=== PATIENT | male | born 1975 | race Caucasian/White ===

== ENCOUNTER 2019-01-25 09:43 | Outpatient (CLI) | payer MEDICARE, MEDICAID ==
--- NOTE | 2019-01-31 16:12 | RAD ---
Modified barium swallow HISTORY: Dysphagia, unspecified. Other cerebrovascular disease. FINDINGS: This examination was performed by speech pathology, and a video is available for evaluation. The agus ent was administered varying consistencies of barium during the exam. A portion of the airway is obscured due to overlying shoulders. The patient does demonstrate difficulty in formation of the bolu s into the posterior pharynx. There is premature spill of contrast into the vallecula and piriform sinuses prior to initiation of the swallowing mechanism. A few episodes of trace aspiration are sugge sted during the exam. There were also episodes of mild penetration during the exam. IMPRESSION: 1. Difficult to in formation of bolus into the posterior pharynx with premature spill of contrast int o the vallecula and piriform sinuses prior to initiation of swallowing mechanism. 2. Episode of aspiration during the exam.
== END 2019-01-25 09:44 | disposition home or self-care (01) ==
DX: R13.10 Dysphagia, unspecified (principal); I67.89 Other cerebrovascular disease
CPT/HCPCS: 74230

== ENCOUNTER 2019-03-13 10:07 | Outpatient (CLI) | payer MEDICARE, MEDICAID ==
--- NOTE | 2019-03-14 21:41 | RAD ---
Modified barium swallow with speech therapist: DATE: 03/13/2019 HISTORY: 43-year-old male with dysphagia, unspecified, and feeding difficulties. FINDINGS: Difficult study to evaluate because patient constantly terms and rotates his head and neck while swal lowing. Premature free spillage. Multiple episodes of penetration during swallow of puree and nectar. No definite episode of aspiration identified. IMPRESSION: Dysphagia with multiple episodes of penetration. Premature free spillage into vallecula.
== END 2019-03-13 10:08 | disposition home or self-care (01) ==
PROVIDERS: ATTEND Family Medicine
DX: I69.191 Dysphagia following nontraumatic intracerebral hemorrhage (principal); R63.3 Feeding difficulties
CPT/HCPCS: 74230